=== PATIENT | male | born 1950 | race Caucasian/White ===

== ENCOUNTER → 2017-03-13 | Outpatient (CLI) | payer BC ==
[2017-03-13 14:53] LABS: BASOPHILS % (AUTO) 0.5 % (0.2-1.0); EOSINOPHILS # (AUTO) 0.1 x10^3/uL (0.0-0.2); EOSINOPHILS % (AUTO) 1.2 % (0.9-2.9); HEMATOCRIT 37.5 % (42.0-54.0); HEMOGLOBIN 12.3 g/dL (13.5-18.0); LYMPHOCYTES # (AUTO) 1.4 X10^3/uL (1.3-2.9); LYMPHOCYTES % (AUTO) 17.6 % (21.0-51.0); MEAN CORPUSCULAR HEMOGLOBIN 29.6 pg (27.0-34.0); MEAN CORPUSCULAR HGB CONC 32.9 g/dL (33.0-35.0); MEAN CORPUSCULAR VOLUME 89.9 fL (80.0-100.0); MEAN PLATELET VOLUME 7.6 fL (7.4-11.0); MONOCYTES # (AUTO) 0.3 x10^3/uL (0.3-0.8); MONOCYTES % (AUTO) 4.3 % (0.0-13.0); NEUTROPHILS # (AUTO) 5.9 x10^3/uL (2.2-4.8); NEUTROPHILS % (AUTO) 76.4 % (42.0-75.0); PLATELET COUNT 424 X10^3/uL (150.0-450.0); RED BLOOD COUNT 4.17 X10^6/uL (4.7-6.0); RED CELL DISTRIBUTION WIDTH 17.3 % (11.6-16.5); WHITE BLOOD COUNT 7.8 X10^3/uL (3.6-10.0)
[2017-03-13 14:56] LABS: APPEARANCE,URINE CLEAR (CLEAR); COLOR,URINE YELLOW (YELLOW); GLUCOSE, URINE NEGATIVE (NEGATIVE); PROTEIN,URINE 2+ (NEGATIVE)
[2017-03-13 14:57] LABS: BACTERIA,URINE NEGATIVE /HPF (NEGATIVE); BILIRUBIN,URINE NEGATIVE (NEGATIVE); BLOOD/HEMOGLOBIN,URINE NEGATIVE (NEGATIVE); KETONES,URINE NEGATIVE (NEGATIVE); LEUKOCYTE ESTERASE ,URINE 1+ (NEGATIVE); NITRITES,URINE NEGATIVE (NEGATIVE); RBC,URINE 0-1 /HPF (NEGATIVE); SQUAMOUS EPITHELIAL CELL,UR RARE /HPF (NEGATIVE); UROBILINOGEN,URINE NORMAL (NORMAL)
[2017-03-13 15:10] LABS: ALANINE AMINOTRANSFERASE 25 Units/L (12-78); ALBUMIN 3.5 g/dL (3.4-5.0); ALKALINE PHOSPHATASE 63 Units/L (46-116); ASPARTATE AMINO TRANSFERASE 18 Units/L (15-37); BLOOD UREA NITROGEN 45 mg/dL (7-18); CHLORIDE 100 mmol/L (98-107); COR NA(FOR HYPERGLY) 137 mmol/L (136-145); CREATININE 2.08 mg/dL (0.70-1.30); GLUCOSE 134 mg/dL (65-99); SODIUM 136 mmol/L (136-145); TOTAL PROTEIN 7.7 g/dL (6.4-8.2); eGFR BLACK RACES 41 (>60); eGFR NON BLACK RACES 34 (>60)
== END | disposition home or self-care (01) ==
LOC: LAB 10:30
PROVIDERS: ATTEND Orthopaedic Surgery
DX: Z01.818 Encounter for other preprocedural examination (principal); Z01.810 Encounter for preprocedural cardiovascular examination; Z01.811 Encounter for preprocedural respiratory examination; Z79.899 Other long term (current) drug therapy; Z79.01 Long term (current) use of anticoagulants; Z11.8 Encounter for screening for other infectious and parasitic diseases; B95.61 Methicillin susceptible Staphylococcus aureus infection as the cause of diseases classified elsewhere; S42.332A Displaced oblique fracture of shaft of humerus, left arm, initial encounter for closed fracture; X58.XXXA Exposure to other specified factors, initial encounter
CPT/HCPCS: 36415; 71020; 80053; 81001; 85025; 85610; 85730; 87641; 93005; 93010

== ENCOUNTER 2017-03-15 10:24 | Day surgery (SDC) | payer BC ==
[~2017-03-15 10:24] MED LIST: BACTROBAN OINT ONE; MARCAINE 0.25% WITH EPI IJ ONE; XYLOCAINE 1 % (PLAIN) ONE
[2017-03-15] MEDS ORDERED: D5 LR 1000 ML 1,000 ML IV ONE (11:14)
[2017-03-15] MEDS ORDERED: NS 50 ML IV + SPIKE MINIBAG* 50 ML IV ONE (11:14)
[2017-03-15] MEDS ORDERED: ANCEF VIAL 1 GM ONE (11:15)
[2017-03-15] MEDS ORDERED: MARCAINE 0.25% WITH EPI IJ ONE (13:09)
[2017-03-15] MEDS ORDERED: XYLOCAINE 1 % (PLAIN) ONE (13:09)
[2017-03-15] MEDS ORDERED: BACTROBAN OINT ONE (13:10)
[2017-03-15] MEDS ORDERED: ROBINUL ONE (14:59)
[2017-03-15] MEDS ORDERED: NORCURON INJ 10 MG VIAL ONE (14:59)
[2017-03-15] MEDS ORDERED: DIPRIVAN VIAL ONE (14:59)
[2017-03-15] MEDS ORDERED: EPHEDRINE SULFATE INJ ONE (14:59)
[2017-03-15] MEDS ORDERED: NEOSTIGMINE INJ ONE (14:59)
[2017-03-15] MEDS ORDERED: QUELICIN (OR ANECTINE) ONE (14:59)
[2017-03-15] MEDS ORDERED: ZOFRAN INJ 4 MG VIAL ONE (14:59)
[2017-03-15] MEDS ORDERED: XYLOCAINE 2 % (PLAIN) ONE ×2 (14:59→16:20)
[2017-03-15] MEDS ORDERED: SUPRANE IN ONE (14:59)
[2017-03-15] MEDS ORDERED: NAROPIN 0.75% ONE (16:20)
[2017-03-15] MEDS ORDERED: FENTANYL INJ 250 mcg ONE (17:10)
[2017-03-15] MEDS ORDERED: LR 1000 ML IV 1,000 ML IV ONE ×2 (18:16→19:01)
[2017-03-15] MEDS ORDERED: NS IRRIGATION 1000 ML 1,000 ML with BACITRACIN VIAL 50,000 UNT IR ONE ×2 (18:34)
[2017-03-15] MEDS ORDERED: ZOFRAN INJ 4 MG VIAL IVP PRN ×2 (21:34→21:43)
[2017-03-15] MEDS ORDERED: DILAUDID INJ IVP PRN (21:43)
[2017-03-15] MEDS ORDERED: PHENERGAN INJ 25 MG IVP PRN (21:43)
[2017-03-15] MEDS ORDERED: BENADRYL INJ 50 MG VIAL IVP PRN (21:43)
[2017-03-15] MEDS ORDERED: REGLAN INJ 10 MG VIAL IVP PRN (21:43)
[2017-03-15] MEDS: PERCOCET TAB 5/325 MG PO PRN (23:49)
[2017-03-16] MEDS: PERCOCET TAB 5/325 MG PO PRN (09:46)
[2017-03-16 12:15] VITALS: BP 97/60
--- NOTE | 2017-03-18 08:24 | RAD ---
HISTORY: Fracture status post ORIF Study: Left shoulder AP lateral Comparison: None Findings: The patient is status post open reduction internal fixation of a comminuted proximal humeral fracture with a plate and multiple screws. There is some residual impaction status post open reduction r d intern al fixation. The clavicle, AC joint, scapula, and left upper ribs are intact. IMPRESSION: Status post successful open reduction internal fixation comminuted proximal humeral fracture. Reported By:
== END 2017-03-16 12:45 | disposition home or self-care (01) ==
LOC: SURG1 10:24
PROVIDERS: ATTEND Orthopaedic Surgery
PROC: 0PSG04Z Reposition Left Humeral Shaft with Internal Fixation Device, Open Approach (ICD-10-PCS; principal; 2017-03-15 09:30)
DX: S42.332A Displaced oblique fracture of shaft of humerus, left arm, initial encounter for closed fracture (principal); X58.XXXA Exposure to other specified factors, initial encounter
CPT/HCPCS: 64418; 73030; 76000; A4216; A4222; S0020; J0330; J0690; J2001; J2405; J2710; J3010; J3490; J7120